=== PATIENT | female | born 1985 | race African-American/Black ===

== ENCOUNTER 2020-05-10 02:11 | Inpatient (IN) | payer SELFPAY ==
[~2020-05-10] VITALS: Ht 190.5 cm; Wt 113.4 kg
[~2020-05-10 02:11] MED LIST: FERR1TAB51; PREN-88 PO
[2020-05-10] MEDS ORDERED: BUTORPHANOL TARTRATE 2 MG/ML VIAL IV PRN (02:15)
[2020-05-10] MEDS ORDERED: LIDOCAINE HCL 1% 20ML VIAL (Pyxis) INJ INFIL SCH (02:15)
[2020-05-10] MEDS ORDERED: CARBOPROST TROMETHAMINE 250 MCG/ML AMPUL IM PRN (02:15)
[2020-05-10] MEDS ORDERED: LACTATED RINGERS 1,000 ML IV SCH (02:15)
[2020-05-10] MEDS ORDERED: AMPICILLIN 2GM in NS 100ML 100 ML IV SCH (02:15)
[2020-05-10] MEDS ORDERED: DEXT 5%/LR + PITOCIN 20UNITS/L 1,000 ML IV SCH ×2 (02:15→03:15)
[2020-05-10] MEDS ORDERED: NALOXONE HCL 0.4 MG/ML 1ML VIAL IM PRN (02:15)
[2020-05-10] MEDS ORDERED: METHYLERGONOVINE MALEATE 0.2 MG/ML IM PRN (02:15)
[2020-05-10] MEDS ORDERED: MISOPROSTOL 200MCG TABLET VG SCH (02:30)
[2020-05-10 03:07] LABS: CLARITY URINE CLOUDY (CLEAR); COLOR URINE YELLOW (YELLOW); KETONES URINE TRACE (NEGATIVE); LEUKOCYTE ESTERASE URINE TRACE (NEGATIVE); NITRITE URINE NEGATIVE (NEGATIVE); OCCULT BLOOD URINE 3+ (NEGATIVE); PH URINE 7.5 (4.5-8.0); PROTEIN URINE 1+ (NEGATIVE); SPECIFIC GRAVITY URINE 1.021 (1.005-1.030)
[2020-05-10 03:12] LABS: INR 0.9; PARTIAL THROMBOPLASTIN TIME 31.3 sec (23.4-31.0); PROTHROMBIN TIME 9.9 sec (9.6-11.0)
[2020-05-10 03:13] LABS: BASOPHILS % 0.4 % (0.0-2.0); EOSINOPHILS % 0.2 % (0.0-5.0); HEMATOCRIT. 37.3 % (36.0-48.0); HEMOGLOBIN. 11.8 g/dL (12.0-16.0); LYMPHOCYTES % 18.9 % (20.0-50.0); MEAN CORPUSCULAR HEMOGLOBIN 24.6 pg (28.0-32.0); MEAN CORPUSCULAR VOLUME 78.2 fL (81.0-99.0); MEAN PLATELET VOLUME 9.2 fl (7.4-10.4); MONOCYTES % 3.8 % (2.0-8.0); NEUTROPHILS % 76.7 % (40.0-76.0); PLATELET 185 x1000/uL (130-400); RED BLOOD CELL COUNT 4.77 mill/uL (4.2-5.4); RED CELL DISTRIBUTION WIDTH 14.7 % (11.6-14.6)
[2020-05-10 03:15] LABS: CHLORIDE 103 mEq/L (98-107)
[2020-05-10] MEDS ORDERED: CALCIUM CARBONATE 500MG TABLET CHEW PO PRN (03:15)
[2020-05-10] MEDS ORDERED: IBUPROFEN 800MG TABLET PO PRN (03:15)
[2020-05-10] MEDS ORDERED: IBUPROFEN 400MG TABLET PO PRN (03:15)
[2020-05-10] MEDS ORDERED: RHO(D) IMMUNE GLOBULIN 300 MCG/SYR IM PRN (03:15)
[2020-05-10 03:18] LABS: *AMPHETAMINES SCREEN URINE NEGATIVE (NEGATIVE); *BARBITURATES SCREEN URINE NEGATIVE (NEGATIVE); CANNABINOID URINE SCREEN NEGATIVE (NEGATIVE); PHENCYCLIDINE URINE SCREEN NEGATIVE (NEGATIVE)
[2020-05-10 03:19] LABS: *BENZODIAZEPINES SCREEN URINE NEGATIVE (NEGATIVE); *COCAINE SCREEN URINE NEGATIVE (NEGATIVE); METHADONE URINE SCREEN NEGATIVE (NEGATIVE); OPIATES URINE SCREEN NEGATIVE (NEGATIVE)
[2020-05-10] MEDS: ACETAMINOPHEN 500MG TABLET PO PRN ×3 (03:33→17:44)
[2020-05-10] MEDS ORDERED: DIPHENOXYLATE/ATROPINE 2.5/0.025MG TABLET PO SCH (04:30)
[2020-05-10] MEDS ORDERED: ASPI-740 PO (04:38)
[2020-05-10 04:53] LABS: HEPATITIS B SURFACE ANTIGEN NEGATIVE
[2020-05-10 05:30] VITALS: BP 110/71
[2020-05-10 06:00] VITALS: BP 120/78
[2020-05-10 08:00] VITALS: BP 112/68
[2020-05-10] MEDS ORDERED: AMPICILLIN 1,000 MG in SODIUM CHLORIDE 0.9% 50 ML IV SCH (08:00)
[2020-05-10] MEDS: POTASSIUM CHLORIDE INJ 40 MEQ in DEXT 5% WATER 500 ML IV SCH (11:40)
[2020-05-10] MEDS ORDERED: POTASSIUM CHLORIDE INJ 40 MEQ in DEXT 5% WATER 500 ML IV SCH (17:00)
[2020-05-10 20:00] VITALS: BP 113/63
[2020-05-11] MEDS: POTASSIUM CHLORIDE INJ 40 MEQ in DEXT 5% WATER 500 ML IV SCH (01:30)
[2020-05-11 04:00] VITALS: BP 112/64
[2020-05-11 08:30] VITALS: BP 106/68
[2020-05-11 09:34] LABS: BASOPHILS % 0.3 % (0.0-2.0); EOSINOPHILS % 0.5 % (0.0-5.0); HEMATOCRIT. 32.2 % (36.0-48.0); HEMOGLOBIN. 10.2 g/dL (12.0-16.0); LYMPHOCYTES % 21.8 % (20.0-50.0); MEAN CORPUSCULAR HEMOGLOBIN 24.7 pg (28.0-32.0); MEAN PLATELET VOLUME 8.7 fl (7.4-10.4); MONOCYTES % 4.2 % (2.0-8.0); NEUTROPHILS % 73.2 % (40.0-76.0); PLATELET 165 x1000/uL (130-400); RED BLOOD CELL COUNT 4.13 mill/uL (4.2-5.4)
[2020-05-11] MEDS ORDERED: POTASSIUM CHLORIDE 20MEQ TABLET SR PO SCH (10:15)
== END 2020-05-11 11:50 | disposition home or self-care (01) | DRG 560 ==
LOC: OBSVTOIN 02:11 → 8 EST LDRP 02:11 → 8EST 05:30
PROVIDERS: ADMIT Obstetrics & Gynecology; ATTEND Obstetrics & Gynecology
PROC: 10E0XZZ Delivery of Products of Conception, External Approach (ICD-10-PCS; principal; 2020-05-10)
DX: O77.0 Labor and delivery complicated by meconium in amniotic fluid (principal); O48.0 Post-term pregnancy; O99.284 Endocrine, nutritional and metabolic diseases complicating childbirth; E87.6 Hypokalemia; Z20.822 Contact with and (suspected) exposure to COVID-19; Z3A.41 41 weeks gestation of pregnancy; Z37.0 Single live birth
CPT/HCPCS: 36415; 80053; 80305; 81003; 84132; 85025; 86592; 86703; 86762; 86850; 86900; 87340; 87426; 96372; 99281; J0290; J2590; J3480; J7060; J7120